=== PATIENT | male | born 1930 | race African-American/Black ===

== ENCOUNTER 2017-06-15 11:43 | Emergency (ER) | payer MEDICARE, OTHER ==
[~2017-06-15] VITALS: Ht 180.3 cm; Wt 137.0 kg
[2017-06-15] MEDS ORDERED: COR6 PO (11:53)
[2017-06-15] MEDS ORDERED: ATOR20TA PO (11:53)
[2017-06-15] MEDS ORDERED: OMEP20TA2 PO (11:53)
[2017-06-15] MEDS ORDERED: GABA-531 PO (11:53)
[2017-06-15] MEDS ORDERED: FURO40TA5 PO (11:53)
[2017-06-15] MEDS ORDERED: ATEN100T PO (11:53)
[2017-06-15] MEDS ORDERED: LEVO500T2 PO (11:53)
[2017-06-15] MEDS ORDERED: CILO100T PO (11:53)
[2017-06-15 12:39] LABS: BASOPHILS % 0.5 % (0.0-2.0); EOSINOPHILS % 2.5 % (0.0-5.0); HEMATOCRIT. 27.7 % (42.0-52.0); HEMOGLOBIN. 8.9 g/dL (14.0-18.0); LYMPHOCYTES % 20.9 % (20.0-50.0); MEAN CORPUSCULAR HEMOGLOBIN 21.1 pg (28.0-32.0); MEAN CORPUSCULAR VOLUME 65.9 fL (80.0-94.0); MEAN PLATELET VOLUME 7.9 fl (7.4-10.4); MONOCYTES % 6.9 % (2.0-8.0); NEUTROPHILS % 69.2 % (40.0-76.0); PLATELET 401 x1000/uL (130-400); RED BLOOD CELL COUNT 4.19 mill/uL (4.7-6.1); RED CELL DISTRIBUTION WIDTH 21.3 % (11.6-14.6)
[2017-06-15 12:47] LABS: CARBON DIOXIDE 30 mEq/L (21-32); CHLORIDE 105 mEq/L (98-107)
[2017-06-15 12:52] LABS: TROPONIN I 0.06 ng/mL (0.00-0.04)
[2017-06-15 13:01] LABS: INR 1.2; PARTIAL THROMBOPLASTIN TIME 26.4 sec (23.4-31.0); PROTHROMBIN TIME 12.2 sec (9.4-11.6)
[2017-06-15 13:26] LABS: PLATELET ESTIMATE SLIGHTLY INCREASED
[2017-06-15 17:08] VITALS: BP 127/77
== END 2017-06-15 17:08 | disposition home or self-care (01) ==
LOC: ER 12:05
DX: R06.09 Other forms of dyspnea (principal); J84.10 Pulmonary fibrosis, unspecified; E78.00 Pure hypercholesterolemia, unspecified; I48.91 Unspecified atrial fibrillation; I11.0 Hypertensive heart disease with heart failure; I25.10 Atherosclerotic heart disease of native coronary artery without angina pectoris; Z86.73 Personal history of transient ischemic attack (TIA), and cerebral infarction without residual deficits; Z79.01 Long term (current) use of anticoagulants; Z88.8 Allergy status to other drugs, medicaments and biological substances
CPT/HCPCS: 36415; 71010; 80053; 83690; 83880; 84484; 85025; 85610; 85730; 93005; 99285